=== PATIENT | male | born 1950 | race Asian ===

== ENCOUNTER 2019-03-31 20:44 | Emergency (ER) | payer MEDICARE, OTHER ==
[~2019-03-31] VITALS: Ht 175.3 cm; Wt 75.7 kg
[2019-03-31 20:50] VITALS: BP 118/80
--- NOTE | 2019-03-31 20:50 | NUR ---
ED Nurse Note: Patient brought in by ambulance from home c/o fall. patient does have a history of falling, patient presents with multiple bruises around his body, rates his pain a 8/10. patient did not lose consciuosness. states that he just lost her balance. patient is alert and oriented x4, has a history of parkinsons. patient placed in a room. will continue to monitor
--- NOTE | 2019-03-31 21:04 | Emergency Room Report ---
History of Present Illness General Chief Complaint: Multiple Trauma/Fall Source: Patient, Medical Record, EMS Present Illness HPI This is a 68-year-old male with history of advanced Parkinson. He has frequent fall. He presents with a fall and nose pain. He walks with a cane. He was trying to open the door for his and fell forward hitting his face on the door. Unable to get up. Denies any loss of consciousness. No nausea no vomiting. No fever chills but denies any other complaint. Pain is 5 out of 10. Allergies: Coded Allergies: No Known Allergies (Unverified , 03/31/19) Patient History Past Medical History: see triage record, old chart reviewed Past Surgical History: other Pertinent Family History: none Social History: Denies: smoking Immunizations: other Reviewed Nursing Documentation: PMH: Agreed; PSxH: Agreed Nursing Documentation-PMH Past Medical History: No History, Except For Review of Systems Eye: Denies: eye pain, blurred vision ENT: Denies: ear pain, nose congestion, throat swelling Respiratory: Denies: cough, shortness of breath Cardiovascular: Denies: chest pain, palpitations Gastrointestinal: Denies: abdominal pain, diarrhea, nausea, vomiting Musculoskeletal: Denies: back pain, joint pain Skin: Denies: rash Neurological: Denies: headache, numbness Endocrine: Denies: increased thirst, increased urine Hematologic/Lymphatic: Denies: easy bruising All Other Systems: negative except mentioned in HPI Physical Exam Vital Signs Date Time Temp Pulse Resp B/P (MAP) Pulse Ox O2 Delivery O2 Flow Rate FiO2 03/31/19 20:45 98.4 104 20 118/80 (93) 96 Room Air Vitals normal Sp02 EP Interpretation: reviewed, normal General Appearance: no apparent distress, alert, cachetic, Chronically Ill Head: normocephalic, other - Forehead contusion with suture in place. He has an old left periorbital ecchymosis. Eyes: bilateral eye PERRL, bilateral eye EOMI ENT: hearing grossly normal, normal pharynx, other - Old abrasion to the bridge of the nose Neck: full range of motion, supple, no meningismus Respiratory: chest non-tender, lungs clear, normal breath sounds Cardiovascular #1: regular rate, rhythm, no murmur Gastrointestinal: normal bowel sounds, non tender, no mass, no organomegaly, no bruit, non-distended Musculoskeletal: back normal, gait/station normal, normal range of motion Psychiatric: mood/affect normal Medical Decision Making Diagnostic Impression: Primary Impression: Head injury, acute Qualified Codes: S09.90XA - Unspecified injury of head, initial encounter ER Course Patient with head injury from multiple fall. According to his he has a walker and a cane. He was sometime lifted up to walk and with fall. No evidence of any bleed. Will discharge home. CT/MRI/US Diagnostic Results CT/MRI/US Diagnostic Results : Imaging Test Ordered: CT head Impression neg per radiologist. Last Vital Signs Date Time Temp Pulse Resp B/P (MAP) Pulse Ox O2 Delivery O2 Flow Rate FiO2 03/31/19 20:45 98.4 104 20 118/80 (93) 96 Room Air Status: improved Disposition: HOME, SELF-CARE Condition: Stable Additional Instructions: You are a fall risk. Your at risk for head injury and broken bones. Follow-up with your doctor in 7 days. You may need a wheelchair. Return if symptoms worsen. Dom Ruano MD Mar 31, 2019 21:03
--- NOTE | 2019-03-31 21:49 | Diagnostic Imaging Report ---
Indication: Headache Technique: Contiguous 5 mm thick transaxial imaging of the head obtained in a Siem[employer] Sensation [address] scanner. Soft tissue and bone windows generated. Automatic Exposure Control was utilized. Total Dose length Product (DLP): [address] Dose Index Volume (CTDIvol): 62.7 mGy Comparison: none Findings: The size and configuration of the cortical sulci, basal cisterns, and ventricles are within normal limits for age. There is no mass effect, midline shift, or edema identified. There is no evidence of acute hemorrhage or abnormal intra-axial or extra-axial fluid collections. The bones and soft tissues are unremarkable. There is a well-circumscribed opacity in the right maxillary sinus which may be a fluid retention cyst. Impression: No mass effect, edema or acute bleed. [facility] has communicated the preliminary results to the Emergency Department. Their findings are largely concordant with this report. The CT scanner at [facility] is accredited by the [employer] and the scans are performed using dose optimization techniques as appropriate to a performed exam including Automatic Exposure control.
[2019-03-31 22:15] VITALS: BP 118/80
--- NOTE | 2019-03-31 22:15 | NUR ---
ER DISCHARGE NOTE: Patient is cleared to be discharged per ERMD, pt is aox4, on room air, with stable vital signs. pt was given dc instructions, pt was able to verbalize understanding, pt id band removed without complications. pt is able to ambulate with steady gait. pt took all belongings.
== END 2019-03-31 22:15 | disposition home or self-care (01) ==
LOC: EDBD 20:44 → EMR 21:22
DX: S09.90XA Unspecified injury of head, initial encounter (principal); G20 Parkinson's disease; W18.30XA Fall on same level, unspecified, initial encounter; Y92.9 Unspecified place or not applicable; Z91.81 History of falling
CPT/HCPCS: 70450; 99284